=== PATIENT | female | born 1985 | race Caucasian/White ===

== ENCOUNTER 2025-03-05 06:02 | Emergency (ER) | payer BC ==
[~2025-03-05] VITALS: Ht 172.7 cm; Wt 45.3 kg
[2025-03-05 06:08] VITALS: TEMP 98.6
[2025-03-05 07:03] LABS: MEAN PLATELET VOLUME 8.8 FL (7.4-10.4); RED CELL DISTRIBUTION WIDTH 12.4 % (11.5-14.5)
[2025-03-05 07:50] LABS: URINE HCG NEGATIVE (NEG)
[2025-03-05 07:54] LABS: LEUKOCYTE ESTERASE ,URINE NEGATIVE (Neg); NITRITES, URINE NEGATIVE (Neg); OCCULT BLOOD,URINE NEGATIVE (Neg)
[2025-03-05 07:58] LABS: UA COLLECTION TYPE CLN CATCH MIDSTREAM
--- NOTE | 2025-03-05 08:05 | Physician Documentation ---
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 The pain is rated seven-8/10 at this time. She has not eaten any food since onset, so was unsure if pain worsens with eating. She also notes some musculoskeletal back pain for the last few months. She denies history of cholecystectomy. She denies any fever, nausea, or vomiting. Medication Reconciliation Allergies: Coded Allergies: No Known Allergies (Unverified , 03/05/25) Past Medical History Past Medical History: Pancreatitis Past Surgical History: no surgical history Drug Use: none Lives In: Home Review of Systems All Other Systems at this time: Reviewed and Negative ROS Upper abdominal pain as well as other positive symptoms noted in the HPI. Otherwise all other systems are reviewed and negative. Physical Exam Physical Exam Vital Signs: RN Vital Signs have been reviewed: Yes, Temperature: 98.6, Source: Temporal, Heart Rate: 81, Respiratory Rate: 18, BP: 120/81, Pulse Oximetry: 100, Weight: 45.300 Oxygen Flow Rate: 0 Pulse Oximetry Reflects: adequate oxygenation Physical Exam VITALS: Reviewed and as above. GENERAL: Alert, mild distress. HEENT: Normocephalic, atraumatic, PERRL, EOMI, dry mucosa RESPIRATORY: Lungs clear, normal breath sounds, no respiratory distress. CHEST: No accessory muscle use, no retractions CV: Regular rate, rhythm, no edema, no murmur, No: JVD GI: Epigastric and RUQ TTP. Soft, bowels sounds present, no rebound, guarding, or rigidity BACK: No CVA tenderness, or swelling MUSCULOSKELETAL No deformities, no edema SKIN: Warm and dry, no rash NEURO: Oriented x4, No motor or sensory deficit PSYCH: Normal mood and affect, no agitation Progress Results/Orders Reviewed/noted all lab results: Yes Results/Orders Medications Received in ER Medications (Trade) Dose Ordered Sig/Nae Route PRN Reason Start Time Stop Time Status Last Admin Dose Admin (0.9% sodium chloride (NS) 1000ml IV soln) 1,000 ml ONCE ONCE IVB 03/05/25 08:25 03/05/25 08:26 DC 03/05/25 08:49 1,000 ML (Toradol injection) 15 mg ONCE ONCE IV 03/05/25 08:25 03/05/25 08:26 DC 03/05/25 08:49 15 MG Vital Signs 03/05/25 03/05/25 03/05/25 03/05/25 06:08 07:42 07:42 08:30 Temp 98.6 Pulse 90 81 71 Resp 15 18 18 17 B/P (MAP) 120/81 (94) 114/79 (91) Pulse Ox 98 100 100 O2 Flow Rate 0 0 03/05/25 03/05/25 08:49 09:28 Pulse 69 Resp 18 17 B/P (MAP) 96/56 (69) Pulse Ox 98 O2 Flow Rate 0 Laboratory Tests Test 03/05/25 06:35 03/05/25 07:33 White Blood Count 5.6 Red Blood Count 4.24 Hemoglobin 13.8 Hematocrit 40.6 Mean Corpuscular Volume 95.8 Mean Corpuscular Hemoglobin 32.6 H Mean Corpuscular Hemoglobin Concent 34.0 Red Cell Distribution Width 12.4 Platelet Count 226 Mean Platelet Volume 8.8 Neutrophils (%) (Auto) 72.9 Lymphocytes (%) (Auto) 18.8 L Monocytes (%) (Auto) 7.3 Eosinophils (%) (Auto) 0.6 Basophils (%) (Auto) 0.4 Neutrophils # (Auto) 4.1 Lymphocytes # (Auto) 1.1 Monocytes # (Auto) 0.4 Eosinophils # (Auto) 0.0 Basophils # (Auto) 0.0 CBC Comment Sodium Level 138 Potassium Level 3.7 Chloride Level 99 Carbon Dioxide Level 30.5 Anion Gap 9 Blood Urea Nitrogen 7 Creatinine 0.71 Estimated GFR/1.73 m2 > 90 BUN/Creatinine Ratio 9.9 L Glucose Level 106 H Calcium Level 9.0 Total Bilirubin 0.2 Aspartate Amino Transf (AST/SGOT) 37 Alanine Aminotransferase (ALT/SGPT) 62 Alkaline Phosphatase 76 Total Protein 7.3 Albumin 3.8 Globulin 3.5 Albumin/Globulin Ratio 1.1 Lipase 29 Chemistry Comments Urine Specimen Description Cln catch midstream Urine Color Straw Urine Clarity Clear Urine pH 6.5 Urine Specific [place] <=1.005 Urine Protein Negative Urine Glucose (UA) Negative Urine Ketones 15 H Urine Occult Blood Negative Urine Nitrite Negative Urine Bilirubin Negative Urine Urobilinogen 0.2 Urine Leukocyte Esterase Negative Urine Culture Indicated Not ind Volume Urine Centrifuged 10 ml Urine HCG, Qualitative Negative Urine Comment EKG/XRAY/CT/US/VASC/MRI Ultrasound : Interpreted By: radiologist Ultrasound of: abdomen Impression INDICATION: ruq pain TECHNIQUE: Multiple real-time sonographic images of the abdomen were obtained. COMPARISON: None FINDINGS: Liver is homogenous in echogenicity. The liver measures 20.4 cm. No intrahepatic biliary ductal dilatation is noted. The gallbladder wall measures 0.2 cm and is unremarkable. No gallstones or gallbladder sludge. No pericholecystic fluid or edema. The common duct measures 0.2 cm and is unremarkable. The right kidney measures 11.5 cm. No hydronephrosis. The left kidney measures 11.8 cm. No hydronephrosis. 0.5 cm nonobstructing stone in the right midpole kidney. Spleen is not visualized. The pancreas is not well visualized due to obscuration from bowel gas. The visualized portions of the IVC and aorta are grossly unremarkable. IMPRESSION: 0.5 cm nonobstructing stone in the right midpole kidney. Hepatomegaly. Reviewed by myself. Medical Decision Making Additional info obtained from: old records (No prior visits) Departure Time of Disposition: 11:47 Disposition: 01 HOME / SELF CARE / HOMELESS Impression: Primary Impression: Abdominal pain Qualified Codes: R10.9 - Unspecified abdominal pain Condition: Stable Discharge Instructions: Abdominal Pain, Adult, [id number] Additional Instructions: Medications as prescribed. Follow up with the regular doctor. Return to the ER for worsening symptoms, fever, vomiting, or any other concerns. Education Educated: Patient Educated regarding: diagnosis, treatment, need for follow up Signature Scribe Signature: Scribed for OhlfsDinh MD by Kimberly Lopez . 03/05/25 08:24 DINH HARO MD Mar 05, 2025 08:05 KIMBERLY MCKEON Mar 05, 2025 08:29
[2025-03-05] MEDS: ketorolac trometh 15mg/ml vial 15 MG/ML ML IV ONE (08:49)
[2025-03-05] MEDS: normal saline 1000ML IV soln IVB ONE (08:49)
--- NOTE | 2025-03-05 09:44 | RADIOLOGY REPORT ---
INDICATION: ruq pain TECHNIQUE: Multiple real-time sonographic images of the abdomen were obtained. COMPARISON: None FINDINGS: Liver is homogenous in echogenicity. The liver measures 20.4 cm. No intrahepatic biliary ductal dilatation is noted. The gallbladder wall measures 0.2 cm and is unremarkable. No gallstones or gallbladder sludge. No pericholecystic fluid or edema. The common duct measures 0.2 cm and is unremarkable. The right kidney measures 11.5 cm. No hydronephrosis. The left kidney measures 11.8 cm. No hydronephr osis. 0.5 cm nonobstructing stone in the right midpole kidney. Spleen is not visualized. The pancreas is not well visualized due to obscuration from bowel gas. The visualized portions of the IVC and aorta are grossly unremarkable. IMPRESSION: 0.5 cm nonobstructing stone in the right midpole kidney. Hepatomegaly.
[2025-03-05 10:21] LABS: TOTAL CARBON DIOXIDE 30.5 MMOL/L (24-32)
[2025-03-05 10:39] LABS: CREATININE 0.71 MG/DL (0.40-0.90); eCRCL 77 ML/MIN; eGFR > 90 ML/MIN
[2025-03-05] MEDS ORDERED: ONDA-243 PO (11:47)
[2025-03-05] MEDS ORDERED: OMEP40CA21 PO (11:47)
[2025-03-05 12:28] VITALS: BP 112/76; PULSE 61; RESP 17; O2SAT 97
== END 2025-03-05 12:30 | disposition home or self-care (01) ==
LOC: ER 06:03
DX: R10.11 Right upper quadrant pain (principal); R10.12 Left upper quadrant pain
CPT/HCPCS: 36415; 76700; 80053; 81003; 81025; 83690; 85025; 96361; 96374; 99285; J1885; J7030